=== PATIENT | male | born 1965 | race African-American/Black ===

== ENCOUNTER 2019-03-27 16:57 | Emergency (ER) | payer MEDICAID, SELFPAY ==
[2019-03-27 16:59] VITALS: BP 155/105; PULSE 88; RESP 18; TEMP 36.2; O2SAT 99; BMI 27.9
--- NOTE | 2019-03-27 17:08 | ED.VIS.GEN ---
History of Present Illness Chief Complaint: Cold Sx Informant: Patient Onset: Weeks Context: Gradual Onset Timing: Continuous Current Severity: Moderate Maximum Severity: Moderate Narrative: Patient is a 53-year-old male with history of smoking, but no other significant medical history the presents to the emergency department with symptoms of sinusitis. Patient states for the past 2 weeks, he has had upper respiratory infection. He states over the past week, he began to have purulent drainage from his nose with a strong odor. He describes some facial fullness and mild sore throat. He said a scant cough, but thinks it secondary to the drainage. He is unsure if he had fever. He has no history of immunosuppression. Prior similar symptoms: No Recent Illness/Hospitalization: No Past Medical History - Allergies and Home Meds Allergies/Adverse Reactions: Allergies No Known Allergies Allergy (Verified 03/27/19 16:59) Primary Care Physician: Patrick Joshi MD [Primary Care Provider] - Prior records reviewed: Yes Past Medical History: None Surgical History: noncontributory Smoking Status: Unknown if ever smoked Review of Systems General: Denies: Chills, Fever, Sweats Eyes: Denies: Visual changes - bilaterally, Diplopia ENT: Reports: Bilateral ear pain, Rhinorrhea, Sore throat Cardiovascular: Denies: Chest pain, Palpitations Respiratory: Denies: Dyspnea, Cough, Dyspnea on exertion Gastrointestinal: Denies: Abdominal pain, Nausea, Vomiting, Diarrhea, Melena, Hematochezia Genitourinary: Denies: Dysuria, Hematuria, Frequency Musculoskeletal: Denies: Back pain, Extremity Pain Skin: Denies: Rash, Wounds Neurological: Denies: Headache, Weakness, Numbness Physical Exam Vital Signs/Narrative: Vital Signs Temp Pulse Resp BP Pulse Ox 03/27/19 16:59 97.2 F L 88 18 155/105 H 99 Inital Vital Signs reviewed: Yes General: Well nourished, Well developed, No Acute Distress Head: Normocephalic, Atraumatic Eyes: Perrl, EOMI ENT: Moist mucous membranes, No rhinorrhea, Nasal congestion, Sinus tenderness Neck: Supple, Nontender Cardiovascular: Regular rate, Regular rhythm, No murmurs Respiratory: No distress, CTA bilaterally, Chest nontender Abdomen: Soft, Nontender, Nondistended, Normal bowel sounds Back: Nontender, Normal Inspection Extremities: Nontender, No edema Skin: Normal color, No rash Neurological: Alert, Oriented x3, Cranial nerves II-XII grossly intact, Normal Strength, Normal Sensation Psychological: Normal affect, Normal Mood Diagnostic/Tx/Re-eval - Medical Decision Making Patient symptoms do seem consistent with an acute sinusitis. He is afebrile. His lungs are clear. He is not wheezing. He is not hypoxic. Given the persistence of his symptoms, I am going to treat him for bacterial process. He will be given a prednisone and Augmentin. He is given his first dose here. He is counseled on concerning symptoms and reasons to return. He will be discharged home. Impression 1. Acute sinusitis ED Disposition - Plan for ED Patient: Instructions: SINUSITIS, Abx Tx Prescriptions: Amox/Clavulanate Tablet [Augmentin Tablet] 875 mg PO Q12H #20 tab Prescription Printed Prednisone [Deltasone] 40 mg PO DAILY #10 tab Prescription Printed Referrals: Patrick Joshi MD [Primary Care Provider] -
[2019-03-27] MEDS: Amox/Clavulanate 875 MG Tablet PO (17:26)
[2019-03-27] MEDS: predniSONE 20 MG Tablet 40 MG PO (17:26)
== END 2019-03-27 17:26 | disposition home or self-care (01) ==
LOC: ED 17:24
PROVIDERS: Emergency Provider Emergency Medicine; Family Provider Family Medicine; PCP Family Medicine
DX: J01.90 Acute sinusitis, unspecified (principal); H92.03 Otalgia, bilateral; Z79.899 Other long term (current) drug therapy; Z87.891 Personal history of nicotine dependence
CPT/HCPCS: 99283

== ENCOUNTER 2020-01-07 09:52 | Emergency (ER) | payer OTHER, SELFPAY ==
[2020-01-07 09:53] VITALS: BP 166/95; PULSE 98; RESP 18; TEMP 35.6; O2SAT 99; BMI 29.3
--- NOTE | 2020-01-07 10:09 | ED.VISSUMM ---
- ER Visit Summary Date of Service: 01/07/20 Chief Complaint: Shortness of breath History of Present Illness: The patient is a 54 M who presents with shortness of breath that is been constant for the past several months. Patient states it is intermittent. Patient states nothing makes it better or worse. Patient denies any cough. Patient does admit to some rhinorrhea. Patient denies any fevers or chills. Patient denies any chest pain. Patient states his granddaughter has been sick with strep throat. Patient states that his work sent him in to be tested for COVID since there was another coworker who tested positive. 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 Physical Examination: Vital signs are stable. Patient is afebrile. Patient is in no acute distress. Oral mucosa is pink and moist. Neck is supple. Trachea is midline. There is no JVD noted. Heart was regular rate and rhythm. Lungs are clear and equal bilaterally. Abdomen is soft. Bowel sounds are normal. There is no tenderness. There is no rebound or guarding noted. Skin is warm dry. Cranial nerves II through XII are intact. There are no focal motor or sensory deficits noted. Extremities are intact. There is no calf tenderness or edema. Test Results: A send out COVID swab was obtained and is pending. Emergency Department Course and Treatment: Since his lungs are clear and he is not having any fever or cough, I do not feel chest x-ray is necessary at this time. Patient was instructed to quarantine until his test results came back. Patient was instructed to follow-up with his primary care physician for his test results. Patient was instructed to return if worse in any way. Patient understood and was agreeable with the plan. All questions were answered. Disposition: Discharge home Impression: Viral illness This note was generated with [employer] dictation software. It may contain incorrect words, spelling, and punctuation that were not noted in review of the chart prior to signing ED Disposition - Plan for ED Patient: Disposition: Home or Assisted Living Diagnosis: Viral illness Instructions: ED URI Viral Referrals: Chester Wang MD [Primary Care Provider] - 3-5 Days
--- NOTE | 2020-01-07 10:41 | ED.RN ---
DISCHARGE INSTRUCTIONS GIVEN TO AND REVIEWED WITH PATIENT, PATIENT DENIES QUESTIONS OR CONCERNS AND VOICES UNDERSTANDING OF DISCHARGE INSTRUCTIONS. PT AMBULATES OUT OF ROOM WITHOUT DIFFICULTY.
== END 2020-01-07 10:42 | disposition home or self-care (01) ==
LOC: ED 10:29
PROVIDERS: Emergency Provider Emergency Medicine
DX: B34.9 Viral infection, unspecified (principal); J34.89 Other specified disorders of nose and nasal sinuses; R06.02 Shortness of breath; Z79.899 Other long term (current) drug therapy
CPT/HCPCS: 87635; 99282; U0003

== ENCOUNTER 2020-03-13 12:43 | Emergency (ER) | payer OTHER, SELFPAY ==
[2020-03-13 12:45] VITALS: BP 134/91; PULSE 93; RESP 16; TEMP 36.5; O2SAT 97; BMI 28.2
--- NOTE | 2020-03-13 12:57 | ED.VIS.GEN ---
History of Present Illness Chief Complaint: General Illness Informant: Patient Onset: - - Needs Covid testing Context: - - Possible exposure Tuesday at work Timing: Intermittent Quality: No symptoms possible exposure Location: Work Current Severity: - - Not applicable Maximum Severity: - - Not applicable Worsened by: Not applicable Relieved by: Not applicable Associated Symptoms: No symptoms Narrative: Patient is a healthy 54-year-old male who is a non-smoker and nondrinker who was sent in from work to be tested for Covid. Patient has no symptoms. Exposure occurred at work on Tuesday. He has no medical problems on no medications and no allergies. Prior similar symptoms: No Recent Illness/Hospitalization: No - Past Medical History (1) No significant past medical history Status: Acute Past Medical History - Allergies and Home Meds Allergies/Adverse Reactions: Allergies No Known Allergies Allergy (Verified 03/13/20 12:47) Primary Care Physician: Care Physician,No Primary [Primary Care Provider] - Prior records reviewed: No Surgical History: noncontributory Lives: Alone Smoking Status: Never smoker Alcohol: None Review of Systems General: Denies: Chills, Fever, Malaise, Subjective, Sweats Cardiovascular: Denies: Chest pain, Palpitations Respiratory: Denies: Dyspnea, Cough, Dyspnea on exertion Musculoskeletal: Denies: Myalgias, Arthralgias Physical Exam Vital Signs/Narrative: Vital Signs Temp Pulse Resp BP Pulse Ox 03/13/20 12:45 97.7 F L 93 16 134/91 H 97 Inital Vital Signs reviewed: Yes General: Well nourished, Well developed, No Acute Distress Head: Normocephalic, Atraumatic Eyes: Perrl, EOMI ENT: Moist mucous membranes, No rhinorrhea Neck: Supple Cardiovascular: Regular rate, Regular rhythm, No murmurs, Normal S1, Normal S2 Respiratory: No distress, CTA bilaterally, Chest nontender Rectal: Deferred Back: Nontender Skin: Normal color, No rash Neurological: Alert, Oriented x3, Cranial nerves II-XII grossly intact, Normal Strength, Normal Sensation Psychological: Normal affect Diagnostic/Tx/Re-eval - Medical Decision Making Rapid Covid test was ordered since employer is requiring him to have a negative test return to work. Plan is obtain test discharge to home will call with results ED Disposition - Plan for ED Patient: Disposition: Home or Assisted Living Diagnosis: Close exposure to COVID-19 virus Instructions: Coronavirus Disease 2019 (COVID-19): Overview Referrals: Care Physician,No Primary [Primary Care Provider] - Corporate,Care [GROUP OF PHYSICIANS] - As Needed
== END 2020-03-13 13:21 | disposition home or self-care (01) ==
LOC: ED 13:12
PROVIDERS: Emergency Provider Emergency Medicine; PCP Family Medicine
DX: Z20.828 Contact with and (suspected) exposure to other viral communicable diseases (principal)
CPT/HCPCS: 87426; 99281

== ENCOUNTER 2022-05-26 17:22 | Emergency (ER) | payer OTHER, SELFPAY ==
[2022-05-26 17:23] VITALS: BP 166/115; PULSE 81; RESP 17; TEMP 36.1; O2SAT 100; BMI 33.0
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
[2022-05-26 19:06] VITALS: RESP 17
== END 2022-05-26 19:06 | disposition home or self-care (01) ==
PROVIDERS: Emergency Provider Emergency Medicine; PCP Family Medicine; Visit Provider Emergency Medicine
DX: S16.1XXA Strain of muscle, fascia and tendon at neck level, initial encounter (principal); V43.52XA Car driver injured in collision with other type car in traffic accident, initial encounter
CPT/HCPCS: 71045; 72125; 99283